=== PATIENT | female | born 1990 | race Caucasian/White ===

== ENCOUNTER 2017-05-24 21:13 | Emergency (ER) | payer OTHER ==
[~2017-05-24] VITALS: Ht 160 cm; Wt 86.2 kg
--- NOTE | 2017-05-24 21:34 | Emergency Room Report ---
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 N Clinical Suspician of Infection? N Mental Status: 1 - Regular (Normal Baseline) Sepsis Risk:Possible Sepsis Risk Have you (or family members/close friends) recently traveled outside the [place]? N If Yes, where/when: Have you had exposure to infectious disease within the past month? N TB? Other? Specify: Source patient, RN notes reviewed, family, old records Exam Limitations no limitations Comment py with lt sided chest pain under her lt breast and lt lat thoraic region with no known card disease and no recent viral illness - no positional cahnges or def inc/dec factors /does not affect sleep- no fever/cough and no rash or trauma - does rad to lt upperext and some relief with asa Cardiac Chest Pain Chest pain indicative of cardiac No Timing/Duration this evening Severity moderate ALLERGIES Coded Allergies: MDX - Cinnamon (CINNAMON) (THROAT CLOSES 07/11/14) MDX - Metaproterenol (From ALUPENT) (I-RASH 07/11/14) TURKEY (DRUG) (From TURKEY (FOOD/DRUG)) ("EARS RED" 07/11/14) TURKEY (FOOD) (From TURKEY (FOOD/DRUG)) ("EARS RED" 07/11/14) Home Medications Reported Medications METFORMIN HCL (Metformin) 1,000 MG PO DAILY Letrozole 2.5 MG PO DAILY #10 History Medical History General CAD? No Angina: No MO: No Hypertension? No Hyperlipidemia? No CHF? No DVT? No PE? No COPD? No Asthma? No Anemia? No GERD? No Gastric ulcers? No GI Bleed? No Hernia? No Thyroid Problems? No Hypothyroidism? No CVA? No Seizures? No Diabetes? No Renal Insuffiency? No End Stage Renal Disease? No UTI? Yes Stones? No BPH? No GB Disease: Yes Nephritic Syndrome? No Asplenia? No Hepatitis? No Sickle Cell Disease? No Arthritis? No Migraines? No Cataracts? No Glaucoma? No MRSA? No HIV? No TB? No Anxiety? No Depression? No Cancer? 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 Respiratory denies cough, denies shortness of breath, denies wheezing Cardiovascular chest pain, denies palpitations, denies syncope Gastrointestinal denies abdominal pain, denies diarrhea, denies vomiting Genitourinary denies: dysuria, frequency, hesitancy, hematuria. Musculoskeletal denies back pain, denies joint pain, denies joint swelling, denies neck pain Skin denies rash Psychiatric/Neurological denies headache, denies seizure Physical Exam Vital Signs Vital Signs Date Time Temp Pulse Resp B/P Pulse O2 O2 Flow FiO2 Ox Delivery Rate 05/244 98.5 111 20 150/88 97 - WBC >12,000 or <4,000 or 10% bands? 2 or more SIRS Criteria Met? B/P:150/88 MAP:108 Creatinine >2.0? UA output<0.5ml/kg/hr for 2 hrs? Platelet count >100,000? Lactate >2.0mmol/1? INR >1.2 or PTT > than 60 sec? Evidence of Organ Dysfunction? Provider documented clinical suspician of infection? N Sepsis Criteria Count: 2 Sepsis Risk: Possible Sepsis Risk General Appearance no apparent distress Eye Exam - bilateral eye PERRL, bilateral eye EOMI Ear, Nose, Throat normal ENT inspection Neck supple Respiratory Status No: respiratory distress, tender on palpation. Lung Sounds bilateral: lungs clear. 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 No Results/Orders Laboratory Tests 05/24/172118: Sodium 136, Potassium 3.5, Chloride 102, Carbon Dioxide 25, BUN 12, Creatinine 0.9, Estimated Creat Clear 128, Estimated GFR (MDRD) 75, Glucose 111 H, Calcium 9.5, Total Bilirubin 0.3, AST 13 L, ALT 29, Alkaline Phosphatase 71, Creatine Kinase 86, CK-MB (CK-2) Rel Index 0.6, CK and CKMB Interp < 0.5, Troponin I < 0.02, Total Protein 8.1, Albumin 4.2, Globulin 3.9 H, Albumin/Globulin Ratio 1.1, TSH 3.17, Thyroxine (T4) 9.7, D-Dimer 217, WBC 9.5, RBC 4.58, Hgb 12.9, Hct 38.5, MCV 84.0, RDW 12.7, Plt Count 280, MPV 7.8, Gran % 67.5, Gran # 6.4, Lymphocytes % 24.9, Monocytes % 6.0, Eosinophils % 1.5, Basophils % 0.2, Lymphocytes # 2.4, Monocytes # 0.6, Eosinophils # 0.1, Basophils # 0.0, PUBS MCHC 33.4, MCH 28.1 Current Medication Orders Sig/Kenny Start time Last Medication Dose Route Stop Time Status Admin Sodium Chloride 10 ML PRN PRN 05/24 2130 AC IV 05/25 2119 Orders Procedure Date/time Status CHEST(2 VIEWS-NOT PORTABLE) 05/24 2119 Active IV SALINE LOCK 05/24 2119 Active THYROID STIMULATING HORMONE 05/24 2119 Complete THYROXINE (T4) 05/24 2119 Complete URINE 05/24 2119 Complete D-DIMER 05/24 2119 Complete COMPLETE METABOLIC PANEL 05/24 2119 Complete CBC WITH AUTO DIFF 05/24 2119 Complete CARDIAC ENZYMES 05/24 2119 Complete CM/EKG CM/steam blocker Rhythm Sinus Tachycardia EKG no evid. of ischemic chgs XRAY/CT/US XRAY/CT/US XRAY chest XR interpretation by reviewed by me Xray Results normal/NAD Departure Departure Time of Disposition 2221 Disposition DC Home or Self Care(routine) Clinical Impression Primary Impression: Chest pain Qualifiers: Chest pain type: unspecified Qualified Code: R07.9 - Chest pain, unspecified Condition STABLE Patient Instructions DI for Atypical Chest Pain Additional Instructions see pcp in am as planned Discharge Counseling Counseled pt/family regarding diagnosis, test results, medications/RX, follow up needs ED Critical Care Critical Care No at [id number]
[2017-05-24 21:35] LABS: HEMOGLOBIN 12.9 g/dL (12.2-16.2); LYMPH # 2.4 K/mm3 (0.7-4.5); LYMPH % 24.9 % (10-50.0)
[2017-05-24 21:53] LABS: BUN 12 mg/dL (7-18)
[2017-05-24 21:59] LABS: GFR (ESTIMATED) 75 ML/MIN (59-)
[2017-05-24 22:39] VITALS: BP 118/75
--- NOTE | 2017-05-25 05:19 | RADIOLOGY REPORT PS360 ---
CHEST(2 VIEWS-NOT PORTABLE) HISTORY: chest pain ORDERING PHYSICIAN: Hiren Uribe MD PATIENT AGE: 27 years COMPARISON: None available FINDINGS: The cardiomediastinal silhouette and pulmonary vascularity are within normal limits. The lungs are clear without infiltrates, suspicious nodules, or pleural effusions. No acute bony abnormalities. IMPRESSION: Negative chest, no acute finding
== END 2017-05-24 22:45 | disposition home or self-care (01) ==
LOC: ER 21:13
PROVIDERS: Emergency Medicine
DX: R07.9 Chest pain, unspecified (principal); Z79.84 Long term (current) use of oral hypoglycemic drugs; Z79.899 Other long term (current) drug therapy